=== PATIENT | female | born 1965 | race Caucasian/White ===

== ENCOUNTER 2023-01-07 13:04 | Inpatient (IN) | payer OTHER ==
[2023-01-07 13:46] VITALS: BMI 19.5
[2023-01-07] MEDS ORDERED: MAG HYDROX/AL HYDROX/SIMETH 30 ML UNIT-DOSE CUP PO PRN (15:46)
[2023-01-07] MEDS ORDERED: NICOTINE 14 MG/24 HOURS TOPICAL PATCH TD PRN (15:46)
[2023-01-07] MEDS ORDERED: ACETAMINOPHEN 325 MG TABLET (FP) PO PRN ×2 (15:46)
[2023-01-07] MEDS ORDERED: hydrOXYzine PAMOATE 25 MG CAPSULE (FP) PO PRN (15:46)
[2023-01-07] MEDS ORDERED: BENZOCAINE/MENTHOL (CHLORASEPTIC ) LOZENGE MM PRN (15:46)
[2023-01-07] MEDS ORDERED: DICYCLOMINE HCL 10 MG CAPSULE PO PRN (15:46)
[2023-01-07] MEDS ORDERED: MAGNESIUM HYDROX 2400MG/30ML ORAL SUSPENSION 30 ML CUP PO PRN (15:46)
[2023-01-07] MEDS ORDERED: NICOTINE 10 MG CARTRIDGE (INHALER) IH PRN (15:46)
[2023-01-07] MEDS ORDERED: NALOXONE HCL (KLOXXADO) 8 MG SPRAY NS PRN (15:46)
[2023-01-07] MEDS ORDERED: IBUPROFEN 400 MG TABLET (FP) PO PRN (15:46)
[2023-01-07] MEDS ORDERED: BISMUTH SUBSALICYLATE 524 MG/30 ML PO PRN (15:46)
[2023-01-07] MEDS ORDERED: IBUPROFEN 600 MG TABLET (FP) PO PRN (15:46)
[2023-01-07] MEDS ORDERED: METHOCARBAMOL 500 MG TABLET PO PRN (15:46)
[2023-01-07] MEDS ORDERED: LORazepam 1 MG TABLET PO PRN (15:46)
[2023-01-07] MEDS ORDERED: ONDANSETRON *ODT* 4 MG TABLET SL PRN (15:46)
[2023-01-07] MEDS ORDERED: POLYETHYLENE GLYCOL (HEALTHYLAX) 3350 17 GM PACKET PO PRN (15:46)
[2023-01-07] MEDS ORDERED: LOPERAMIDE HCL 2 MG CAPSULE PO PRN (15:46)
[2023-01-07] MEDS ORDERED: INSULIN (NOVOLOG) ASPART 100 UNITS/ML 10ML VIAL ONE (17:15)
[2023-01-07] MEDS: INSULIN SLIDING SCALE (NOVOLOG) 1 VIAL SQ SCH (17:25)
[2023-01-07] MEDS: LORazepam 2 MG TABLET PO SCH ×2 (17:25→22:48)
[2023-01-07] MEDS: DOXYCYCLINE HYCLATE 100 MG TABLET PO SCH (17:26)
[2023-01-07] MEDS: PRENATAL VITAMINS W/ FOLIC ACID TABLET (FP) PO SCH (17:28)
[2023-01-07] MEDS ORDERED: MELATONIN 5 MG TABLETS PO SCH (22:00)
[2023-01-07] MEDS: THIAMINE HCL 100 MG TABLET (FP) PO SCH (22:48)
[2023-01-08] MEDS: LORazepam 2 MG TABLET PO SCH ×4 (05:29→22:35)
[2023-01-08] MEDS: metFORMIN HCL 500 MG TABLET (FP) PO SCH (06:29)
[2023-01-08] MEDS: sitaGLIPtin PHOSPHATE 50 MG TABLET PO SCH (07:07)
[2023-01-08] MEDS: INSULIN SLIDING SCALE (NOVOLOG) 1 VIAL SQ SCH ×2 (07:12→17:00)
[2023-01-08] MEDS ORDERED: methaDONE HCL 10 MG TABLET PO ONE (09:36)
[2023-01-08] MEDS ORDERED: methaDONE 80 MG, methaDONE 10 MG PO ONE (09:40)
[2023-01-08] MEDS ORDERED: PATIENT'S OWN MEDICATION (NON-FORMULARY) (Sitagliptin Phos/Metformin Hcl [Janumet 50-1,000 PO SCH (10:00)
[2023-01-08] MEDS: DOXYCYCLINE HYCLATE 100 MG TABLET PO SCH ×2 (10:15→18:35)
[2023-01-08] MEDS: PRENATAL VITAMINS W/ FOLIC ACID TABLET (FP) PO SCH (10:16)
[2023-01-08] MEDS: LISINOPRIL 20 MG TABLET PO SCH (10:16)
[2023-01-08] MEDS ORDERED: NICOTINE 14 MG/24 HOURS TOPICAL PATCH TD ONE (12:45)
[2023-01-08 14:29] LABS: HEMATOCRIT 34.7 % (32.4-45.2); HEMOGLOBIN 11.3 GM/dL (10.7-15.3); MCH 26.4 pg (25.7-33.7); MCHC 32.6 g/dl (32.0-36.0); MEAN CELL VOLUME 80.8 fl (80-96); MEAN PLT VOLUME 8.9 fl (7.5-11.1); PLATELET COUNT 244 10^3/uL (134-434); RDW 15.8 % (11.6-15.6); WHITE BLOOD COUNT 4.2 K/mm3 (4.0-10.0)
[2023-01-08 15:00] LABS: CALCIUM 9.1 mg/dL (8.5-10.1)
[2023-01-08 15:01] LABS: ALBUMIN 3.3 g/dl (3.4-5.0)
[2023-01-08 15:04] LABS: CREATININE 0.8 mg/dL (0.55-1.3)
[2023-01-08 15:05] LABS: BILIRUBIN,TOTAL 0.4 mg/dL (0.2-1); TOT PROT 7.6 g/dl (6.4-8.2)
[2023-01-08 15:09] LABS: BLOOD UREA NITROGEN 17.6 mg/dL (7-18)
[2023-01-08] MEDS: NICOTINE POLACRILEX 2 MG GUM BUC PRN (18:39)
[2023-01-08] MEDS: risperiDONE 2 MG TABLET PO SCH (22:35)
[2023-01-08] MEDS: THIAMINE HCL 100 MG TABLET (FP) PO SCH (22:36)
[2023-01-08] MEDS: SUVOREXANT 10 MG TABLET PO PRN (22:38)
[2023-01-09] MEDS: LORazepam 1 MG TABLET PO SCH ×4 (05:44→22:23)
[2023-01-09] MEDS: methaDONE 80 MG, methaDONE 10 MG PO SCH (05:44)
[2023-01-09] MEDS ORDERED: methaDONE HCL 10 MG TABLET PO SCH (06:00)
[2023-01-09] MEDS: sitaGLIPtin PHOSPHATE 50 MG TABLET PO SCH (06:04)
[2023-01-09] MEDS: INSULIN SLIDING SCALE (NOVOLOG) 1 VIAL SQ SCH ×2 (06:05→16:35)
[2023-01-09] MEDS: metFORMIN HCL 500 MG TABLET (FP) PO SCH (06:05)
[2023-01-09] MEDS: PRENATAL VITAMINS W/ FOLIC ACID TABLET (FP) PO SCH (10:15)
[2023-01-09] MEDS: DOXYCYCLINE HYCLATE 100 MG TABLET PO SCH ×2 (10:15→16:59)
[2023-01-09] MEDS: LISINOPRIL 20 MG TABLET PO SCH (10:15)
[2023-01-09] MEDS: NICOTINE POLACRILEX 2 MG GUM BUC PRN ×2 (14:44→18:46)
[2023-01-09] MEDS: THIAMINE HCL 100 MG TABLET (FP) PO SCH (22:23)
[2023-01-09] MEDS: SUVOREXANT 10 MG TABLET PO PRN (22:24)
[2023-01-09] MEDS: risperiDONE 2 MG TABLET PO SCH (22:25)
[2023-01-10] MEDS ORDERED: LORazepam 0.5 MG TABLET PO PRN
[2023-01-10] MEDS: LORazepam 0.5 MG TABLET PO SCH ×2 (05:38→10:07)
[2023-01-10] MEDS: methaDONE 80 MG, methaDONE 10 MG PO SCH (05:40)
[2023-01-10] MEDS: metFORMIN HCL 500 MG TABLET (FP) PO SCH (06:13)
[2023-01-10] MEDS: sitaGLIPtin PHOSPHATE 50 MG TABLET PO SCH (06:14)
[2023-01-10] MEDS: INSULIN SLIDING SCALE (NOVOLOG) 1 VIAL SQ SCH (06:15)
[2023-01-10] MEDS: NICOTINE POLACRILEX 2 MG GUM BUC PRN ×2 (07:58→10:36)
[2023-01-10 09:27] VITALS: BP 115/82; PULSE 83; RESP 16; TEMP 97.7
[2023-01-10] MEDS: DOXYCYCLINE HYCLATE 100 MG TABLET PO SCH (10:06)
[2023-01-10] MEDS: PRENATAL VITAMINS W/ FOLIC ACID TABLET (FP) PO SCH (10:06)
[2023-01-10] MEDS: LISINOPRIL 20 MG TABLET PO SCH (10:06)
[2023-01-11] MEDS ORDERED: LORazepam 0.5 MG TABLET PO ONE (05:00)
== END 2023-01-10 14:25 | disposition home or self-care (01) | DRG 773 ==
LOC: YASAS 13:04 → Y6N 15:40
PROVIDERS: ADMIT Allergy & Immunology; ATTEND Surgery
PROC: HZ2ZZZZ Detoxification Services for Substance Abuse Treatment (ICD-10-PCS; principal; 2023-01-07)
DX: F10.230 Alcohol dependence with withdrawal, uncomplicated (principal); F11.20 Opioid dependence, uncomplicated; F14.20 Cocaine dependence, uncomplicated; F17.210 Nicotine dependence, cigarettes, uncomplicated; F19.280 Other psychoactive substance dependence with psychoactive substance-induced anxiety disorder; F19.282 Other psychoactive substance dependence with psychoactive substance-induced sleep disorder; I10 Essential (primary) hypertension; J44.9 Chronic obstructive pulmonary disease, unspecified; E11.9 Type 2 diabetes mellitus without complications; Z79.84 Long term (current) use of oral hypoglycemic drugs; L02.414 Cutaneous abscess of left upper limb; L02.413 Cutaneous abscess of right upper limb; B18.2 Chronic viral hepatitis C; Z62.810 Personal history of physical and sexual abuse in childhood; Z88.0 Allergy status to penicillin; Z88.6 Allergy status to analgesic agent
CPT/HCPCS: 36415; 80053; 82962; 85027; 86780; 93005; 93010; C9803-CS; U0003; U0005